=== PATIENT | female | born 1975 | race Caucasian/White ===

== ENCOUNTER 2020-05-01 20:21 | Emergency (ER) | payer OTHER, SELFPAY ==
[2020-05-01 20:21] VITALS: BP 139/67; PULSE 99; RESP 20; TEMP 36.6; O2SAT 100
--- NOTE | 2020-05-01 20:48 | ECG_ITS ---
Measurements Intervals [place] Rate: 94 P: 53 ID: [id number] QRS: 80 QRSD: 97 T: 59 QT: 351 QTc: 439 Interpretive Statements SINUS RHYTHM NORMAL ECG Electronically Signed On 05-02-2020 7:40:31 TIMBER APPRAISER by Frank Duncan D.O.
[2020-05-01 21:02] LABS: Basophils Absolute Auto 0.05 K/mm3 (0.00-0.10); Basophils Percent Auto 0.5 % (0.0-1.0); Eosinophils Absolute Auto 0.36 K/mm3 (0.02-0.50); Eosinophils Percent Auto 3.9 % (1.0-6.0); Hematocrit 33.9 % (35.0-49.0); Hemoglobin 11.2 g/dL (12.0-15.0); Immature Granulocyte Absolute 0.02 K/mm3 (0.00-0.00); Immature Granulocyte Percent A 0.2 % (0.0-0.0); Lymphocytes Absolute Auto 2.79 K/mm3 (1.10-4.50); Lymphocytes Percent Auto 30.6 % (18.0-42.0); Mean Corpuscular Hemoglobin 30.4 pg (27.0-31.0); Mean Corpuscular Volume 92.1 fL (78.0-102.0); Mean Platelet Volume 10.3 fl (9.2-11.8); Monocytes Absolute Auto 0.59 K/mm3 (0.10-0.90); Monocytes Percent Auto 6.5 % (2.0-11.0); Neutrophils Absolute Auto 5.3 K/mm3 (1.7-7.2); Neutrophils Percent Auto 58.3 % (50.0-70.0); Platelet Count Result 220 K/mm3 (150-420); Red Blood Count 3.68 M/mm3 (4.20-5.40); Red Cell Distribution Width 12.8 % (11.6-14.4); White Blood Count 9.1 K/mm3 (4.8-10.8)
[2020-05-01 21:22] LABS: SARS-CoV-2 Ag Negative (Negative)
[2020-05-01 21:35] LABS: Alanine Aminotransferase 20 U/L (14-59); Albumin Level 3.7 g/dL (3.4-5.0); Alkaline Phosphatase 70 U/L (46-116); Anion Gap 6 mmol/L (8-16); Aspartate Amino Transferase 19 U/L (15-37); Bilirubin,Total 0.4 mg/dL (0.00-1.00); Blood Urea Nitrogen 10 mg/dL (7-18); Calcium 8.6 mg/dL (8.5-10.1); Carbon Dioxide 30 mmol/L (21-32); Chloride 102 mmol/L (98-108); Estimated Glomerular Filt Rate 59; Free T4 Free Thyroxine 1.13 ng/dL (0.76-1.46); Glucose 87 mg/dL (70-99); Osmolality Calculated 284 mOsm/kg (285-295); Potassium 3.4 mmol/L (3.5-5.1); Sodium 138 mmol/L (136-145); Total Protein 7.3 g/dL (6.4-8.2)
[2020-05-01 21:37] LABS: Acetaminophen < 2 ug/mL (10-30)
[2020-05-01 21:38] LABS: Ethanol < 3 mg/dL (0-6); Thyroid Stimulating Hormone 0.37 uIU/mL (0.36-3.74)
--- NOTE | 2020-05-01 21:57 | ED.OVERDOSE ---
HPI - Overdose General Chief Complaint: Overdose Stated Complaint: OD Time Seen by Provider: 05/01/20 20:25 Source: patient Mode of arrival: ambulatory Limitations: altered mental status History of Present Illness HPI Narrative: Patient is brought in by family who noticed he becoming less responsive after she took heroin at home. This happened minutes prior to presentation. Because her decreased responsiveness was moderately severe, and ongoing they brought her in worried she would stop breathing. Nothing at home seemed to arouse her. complaint: accidental overdose Onset (ago): minute(s) Timing confirmed by: family member Intent: other (accidental overdose of herion) How Overdose Was Discovered: family/friend present at time Context: Accidental Overdose: wanted to get high and uncertain what happened Associated symptoms: lethargy Treatments Prior to Arrival: none Related Data Home Medications Medication Instructions Recorded Confirmed No Home Medications 05/01/20 05/01/20 Allergies Allergy/AdvReac Type Severity Reaction Status Date / Time azithromycin Allergy Mild HIVES Unverified 06/04/08 15:29 Cephalosporins Allergy Mild HIVES Unverified 06/04/08 15:29 Review of Systems Constitutional: Constitutional: Reports no additional constitutional complaints Eyes: Eyes: Reports no additional eye complaints ENT: Reports system reviewed and no additional complaints, except as documented Cardiovascular: Cardiovascular: Reports no additional cardiovascular complaints Respiratory: Respiratory: Reports no additional respiratory complaints Gastrointestinal: Gastrointestinal: Reports no additional gastrointestinal complaints Genitourinary: Genitourinary: Reports no additional female genitourinary complaints Musculoskeletal: Musculoskeletal: Reports no additional musculoskeletal complaints Integumentary/Breasts: Skin/Breast: Reports system reviewed and no additional complaints, except as docu Neurologic: Reports system reviewed and no additional complaints, except as documented Psychiatric: Psychiatric: Reports no additional psychiatric complaints Endocrine: Endocrine: Reports no additional endocrine complaints Hematologic/Lymphatic: Hematologic/Lymphatic: Reports no additional hematologic/lymphatic complaints Allergic/Immunologic: Allergic/Immunologic: Reports no additional allergic/immunologic complaints [facility] Past Medical History Medical History (Updated 05/02/20 @ 00:58 by Wing Jarquin MD) No significant medical problems Social History Social History (Updated 05/02/20 @ 00:58 by Wing Jarquin MD) Smoking status: Current every day smoker Tobacco type: cigarettes Exam Const: General: no acute distress and alert Orientation/consciousness: patient oriented x3 Limitations: behavioral limitations HENMT: Head: normal to inspection Ears: external ears normal General nose exam: Normal external nose present and Normal nares present Face and sinus: normal facial exam Mouth: Yes Normal oral and palatal mucosa present Throat: posterior oropharynx normal Eyes: Conjunctivae: conjunctivae normal Pupils: Equal, round and reactive pupils present Neck: Neck: normal visual inspection and no lymphadenopathy Chest: Chest palpation & inspection: normal inspection of the chest Resp: Effort & Inspection: normal respiratory effort Auscultation: clear to auscultation bilaterally Cardio: Rate: regular rate Rhythm: regular rhythm GI: GI Palp: Yes Soft to palpation (nontender) Skin: General skin exam: normal color Neuro: General: patient oriented x3 and moves all extremities Extrem: General: normal to inspection Psych: Appearance: grossly normal Mental Status: mental status grossly normal Thought content: Yes Normal thought content present Course Course Emergency Course: Labs, and EKG were reviewed. After this, and speaking with mental health, she was allowed to be discharged, as this was an
[2020-05-01 22:23] VITALS: BP 143/101; PULSE 90; RESP 14; O2SAT 95
== END 2020-05-01 22:23 | disposition home or self-care (01) ==
PROVIDERS: Emergency Provider Emergency Medicine
DX: T50.901A Poisoning by unspecified drugs, medicaments and biological substances, accidental (unintentional), initial encounter (principal); Z20.822 Contact with and (suspected) exposure to COVID-19
CPT/HCPCS: 36415; 80053; 80307; 84439; 84443; 84702; 85025; 87426; 93005; 99282; 99283; C9803

== ENCOUNTER 2021-06-21 20:02 | Emergency (ER) | payer OTHER, SELFPAY ==
[2021-06-21 20:08] VITALS: BP 108/61; PULSE 109; RESP 16; TEMP 37.8; O2SAT 97
--- NOTE | 2021-06-21 20:54 | ED.GENADULT ---
HPI - General Adult General Chief complaint: Wound/Laceration Stated complaint: Fever/Skin Sore Time Seen by Provider: 06/21/21 20:40 Source: patient and RN notes reviewed Mode of arrival: ambulatory Limitations: no limitations History of Present Illness HPI narrative: Patient presents today complaining of a 1 week history of fever up to 103. She also reports a wound to her left anterior lower leg that is currently scabbed over but has been present for a couple of days. She has been taking Tylenol for her fever, which does help bring it down some, but not resolve it all the way. Denies any additional sick symptoms such as sore throat, cough, congestion or runny nose. States she is unsure of how she received the wound to her lower leg, but thinks she bumped it on something. MD complaint: Fever, wound Related Data Home Medications Medication Instructions Recorded Confirmed No Home Medications 05/01/20 06/21/21 Allergies Allergy/AdvReac Type Severity Reaction Status Date / Time azithromycin Allergy Mild HIVES Verified 06/21/21 20:23 Cephalosporins Allergy Mild HIVES Verified 06/21/21 20:23 Review of Systems Review of Systems: CONSTITUTIONAL: Denies body aches,chills, or sweats.+ Fever EYES: Denies visual changes, redness, or discharge. ENT: Denies rhinorrhea, congestion, sore throat, or otalgia. CARDIOVASCULAR: Denies chest pain, palpitations, or edema. RESPIRATORY: Denies cough or dyspnea. GASTROINTESTINAL: Denies abdominal pain, nausea, vomiting, or diarrhea. GENITOURINARY: Denies dysuria or hematuria. SKIN: Denies rash, itching. + Left lower leg wound MUSCULOSKELETAL: Denies back pain, joint pain, or myalgia. NEUROLOGIC: Denies headache, numbness, tingling, or weakness. PSYCH: Denies depression or anxiety. PMFSH Past Medical History Medical History No significant medical problems Social History Social History (Updated 06/21/21 @ 20:56 by Day Chung, DIANA, BC) Smoking status: Current every day smoker Tobacco type: cigarettes Substance use: former Substance use type: IV drugs Last use: 2016 Exam Narrative: GENERAL: Well-appearing, well-nourished, and in no acute distress. HEAD: Normocephalic, atraumatic. EYES: EOMI. No redness or drainage. Conjunctivae normal. ENT: Mucous membranes pink and moist. NECK: Normal AROM. CHEST: No respiratory distress. EXTREMITIES: Left leg: Circumferential erythema to the left lower leg. It does not extend to the ankle or foot or up to the knee. No streaking noted. Patient does have some tenderness to the groin area, but no palpable lymphadenitis. There is an approximate 1 cm scabbed wound to the proximal anterior del valle, but no fluctuance noted. 1-2+ pitting edema to the area of erythema. Area of erythema is not exceptionally tender. Distal sensation intact. Capillary refill normal. Pedal pulse strong. Full range of motion of the ankle. Foot and ankle are nontender. -homans SKIN: Warm, dry, no rash. Capillary refill normal. Normal skin turgor. NEURO: No focal deficits. Alert and oriented x3. Gait steady. PSYCH: Normal affect. No signs of depression or anxiety. Course Course Emergency Course: Patient does not want to go to the ER tonight, but states she will go in the morning. Discussed risks and benefits of transfer to the ER. She is ANO x4 and will not under the influence of drugs or alcohol. She is able to make her own medical decisions. She will be leaving AGAINST MEDICAL ADVICE. Level of Care: Express Care Visit Vital Signs Vital signs: Vital Signs Temperature 100.0 F H 06/21/21 20:08 Pulse Rate 109 H 06/21/21 20:08 Respiratory Rate 16 06/21/21 20:08 Blood Pressure 108/61 06/21/21 20:08 Pulse Oximetry 97 06/21/21 20:08 Temperature 100.0 F H 06/21/21 20:08 Pulse Rate 109 H 06/21/21 20:08 Respiratory Rate 16 06/21/21 20:08 Blood Pressure 108/61 0
== END 2021-06-21 20:55 | disposition left against medical advice (07) ==
PROVIDERS: Emergency Provider Nurse Practitioner
DX: L03.116 Cellulitis of left lower limb (principal); R50.9 Fever, unspecified; F17.200 Nicotine dependence, unspecified, uncomplicated
CPT/HCPCS: 99212; G0463

== ENCOUNTER 2023-01-05 12:38 | Outpatient (CLI) | payer OTHER, SELFPAY ==
--- NOTE | ~2023-01-05 | US_ITS ---
EXAMINATION: US soft tissue head and neck DATE: 01/05/2023 13:12 INDICATION: Lump under chin. TECHNIQUE: Multiple grayscale and Doppler ultrasound images of the head and neck were obtained. COMPARISON: None FINDINGS: There are normal submandibular lymph nodes in the patient's area of concern under the chin. IMPRESSION: 1. No abnormal mass or lymphadenopathy in the patient's area of concern. Reviewed, dictated and finalized at location A. [facility]
== END 2023-01-05 12:39 | disposition home or self-care (01) ==
LOC: CHSIMG 12:39
PROVIDERS: PCP Nurse Practitioner Family; Visit Provider Nurse Practitioner Family
DX: R22.1 Localized swelling, mass and lump, neck (principal)
CPT/HCPCS: 76536

== ENCOUNTER 2023-03-06 14:11 | Outpatient (CLI) | payer OTHER, SELFPAY | END 2023-03-06 14:12 | disposition home or self-care (01) | LOC: CHSLAB 14:12 | PROVIDERS: PCP Nurse Practitioner Family; Visit Provider Nurse Practitioner Family | DX: R79.89 Other specified abnormal findings of blood chemistry (principal) | CPT/HCPCS: 99199 ==

== ENCOUNTER 2023-10-04 07:28 | Outpatient (CLI) | payer OTHER, SELFPAY ==
--- NOTE | ~2023-10-04 | US_ITS ---
EXAMINATION:US venous doppler LE LT INDICATION:Leg swelling and discoloration TECHNIQUE: Multiple grayscale, color flow and Doppler images of the left lower extremity deep venous systems were obtained and reviewed. COMPARISON:No prior studies for comparison. FINDINGS: The common femoral, superficial femoral and popliteal veins demonstrate normal respiratory variation, augmentation and compressibility. Color flow is also seen within the posterior tibial, pe roneal, greater saphenous and profunda veins. IMPRESSION: 1: No lower extremity deep venous thrombosis. Reviewed, dictated and finalized at location B.
== END 2023-10-04 07:29 | disposition home or self-care (01) ==
LOC: CHSIMG 07:31
PROVIDERS: PCP Nurse Practitioner Family; Visit Provider Nurse Practitioner Family
DX: R23.8 Other skin changes (principal); M79.89 Other specified soft tissue disorders
CPT/HCPCS: 93971

== ENCOUNTER 2023-12-18 14:42 | Outpatient (CLI) | payer OTHER, SELFPAY ==
--- NOTE | ~2023-12-18 | XR_ITS ---
Clinical Indication: Cough PA and lateral views of the chest: Comparison: 03/16/2009 Findings: The lungs are clear, without evidence of focal consolidation or pleural effusion. Cardiome diastinal silhouette is within normal limits. Bones and soft tissues are unremarkable. Impression: Normal chest. Reviewed, dictated and finalized at [facility]. Impression: Normal chest.
== END 2023-12-18 14:43 | disposition home or self-care (01) ==
LOC: CHSIMG 14:43
PROVIDERS: PCP Nurse Practitioner Family; Visit Provider Nurse Practitioner Family
DX: R05.9 Cough, unspecified (principal)
CPT/HCPCS: 71046